=== PATIENT | male | born 1980 | race Caucasian/White ===

== ENCOUNTER 2022-06-22 10:03 | Outpatient (REF) | payer OTHER, SELFPAY ==
--- NOTE | ~2022-06-22 | XR_ITS ---
EXAMINATION: XR CHEST CLINICAL INFORMATION: Acute bronchitis COMPARISON: None TECHNIQUE: 2 views of the chest were obtained. FINDINGS: No significant abnormality is noted involving the heart, lungs, mediastinum, bony thorax or soft tissues. XR/XR chest 2V IMPRESSION: Unremarkable examination.
== END 2022-06-22 10:04 | disposition home or self-care (01) ==
LOC: HO.HMGCX 10:03
PROVIDERS: Visit Provider Internal Medicine
DX: J02.9 Acute pharyngitis, unspecified (principal); U09.9 Post COVID-19 condition, unspecified
CPT/HCPCS: 71046

== ENCOUNTER 2025-05-26 13:08 | Outpatient (AMB) | payer OTHER, SELFPAY ==
--- NOTE | 2025-05-26 13:24 | MHC.OFFVIS ---
Intake Visit Reasons: 1 yr fu Allergies No Known Allergies Allergy (Verified 06/22/22 09:47) HPI Comments Details: 44 years old man with restless legs syndrome. As far as restless legs syndrome was concerned, he was doing okay. He said that he was diagnosed with a obstructive sleep apnea and [place] and was prescribed CPAP machine, which she was struggling with. He was not sure if it was helping. Also he had seen an ENT doctor and had allergy shots for stuffiness of nose. [facility] Medical History (Updated 05/26/25 @ 13:26 by Zhang Preciado MD) RLS (restless legs syndrome) Review of Systems Narrative - Respiratory: Reports sleep apnea. - Allergic/Immunologic: Reports allergies to tree pollens. Physical Exam Neuro Other: Mental Status: Alert and oriented to person, place, and time. Normal attention. Normal spontaneous speech, fluency, and comprehension. No obvious issues with mood and memory. Affect is appropriate. Cranial Nerves: CN II: Visual [place] full to confrontation, visual acuity intact. CN III, IV, : Pupils equal, round, reactive to light and accommodation. Extraocular movements are normal. CN V: Facial sensation is normal. CN VII: Facial movements symmetrical. CN VIII: Hearing intact to bedside conversation is normal. CN IX, X: Palate elevates symmetrically. CN XI: Shoulder shrug and head turn symmetrical. CN XII: Tongue midline without atrophy or fasciculations. Motor: Bulk and tone normal in all extremities. No significant muscle weakness in arms and legs. No drift. Reflexes: Deep tendon reflexes 2+ and symmetric. Plantar response down-going bilaterally. Coordination: Gxceyt-ft-gwha and toak-xz-zldd testing normal. No dysmetria. Gait and Station: No obvious gait abnormality. No ataxia or instability. Extrapyramidal: Full facial expressions and blinking. No rigidity. Movements are appropriate with no tremor or abnormality. Speech: Normal; no dysarthria or tremor. Assessment & Plan Assessment & Plan (1) Familial restless legs syndrome: Comment: NCV/EMG LTUE This is a normal study. 03/29/22. Code(s): G25.81 - Restless legs syndrome Category: Medical Plan Impression: Familial RLS. He was anxious about this condition getting worse. He was reassured and educated and was advised to take medicine at bedtime. Rec: Pramipaxole 0.5mg 1-2 at bedtime Medications: Changed From pramipexole 0.5 mg PO BEDTIME 90 tabs 1RF To pramipexole 0.5 mg orally 1-2 at bedtime; 180 tabs 1RF Coding Level of Care Code Est Pt Level 4 (35058) Diagnoses Familial restless legs syndrome G25.81
--- OUTSIDE RECORDS SUMMARY | 2025-05-26 15:55 | XMS_ITS | Clinical Summary ---
Author Organization [address] Address [address] [place] [id number] Phone Care Team Providers Care Flat Grinder Operator Name Role Phone Bryant Pyle MD Primary Care Provider [phone] Allergies No known active allergies Medications cyanocobalamin (VIT B-12) 1,000 mcg tablet extended release ER tablet Take by mouth. Active multivitamin (MULTIPLE VITAMINS ORAL) Take by mouth. Active pramipexole (MIRAPEX) 0.5 mg tablet Take 1 tablet (0.5 mg total) by mouth at bedtime. 09/06/2022 Active tadalafiL (CIALIS) 20 mg tablet Take by mouth 1 (one) time each day if needed. Take half a pill 1 hour (range: 30 minutes to 4 hours) before sexual activity as needed; 10/15/2019 Active omeprazole (PriLOSEC) [address] capsule TAKE 1 CAPSULE BY MOUTH 1 TIME EACH DAY. 90 capsule 1 03/11/2025 Active Active Problems Problem Noted Date Diagnosed Date Deviated nasal septum 10/19/2023 Gastroesophageal reflux dise ase with esophagitis without hemorrhage 09/19/2023 Abnormal LFTs 08/29/2018 Thalassemia carrier 08/29/2018 Erectile dysfunction 08/22/2017 Microcytic anemia 08/22/2017 Overview (04/21/2024): Thalassemia Minor Assessment & Plan (07/31/2024 4:22 PM EST): Orders: Iron and TIBC; Future Ferritin; Future Restless leg syndrome 08/22/2017 Immunizations Immunization Administration Dates Next Due Td Tetanus diptheria (Tdvax) 7yo and older 08/24 Tdap Tetanus diptheria acell ular pertussis (Boostrix; Adacel) 7yo and older 01/06/2021 Surgical History Surgery Date Site/Laterality Comments VASECTOMY 2017 PROCEDURE: HISTORICAL VASECTOMY Medical History Medical History Date Comments Thalassemia minor 08/22/2017 DX:Thalassemia minor Restless leg syndrome 08/22/2017 DX:Restles s leg syndrome Erectile dysfunction 08/22/2017 DX:Erectile dysfunction Family History Relation Name Status Comments Brother 1 Alive Brother 2 Alive Father Alive Mother Alive Son 1 Alive Son 2 Alive Social History Tobacco Use Types Packs/Day Years Used Date Smoking Tobacco: Never Smokeless Tobacco: Never Tobacco Cessation:Counseling Given: Not Answered Alcohol Use Standard Drinks/Week Comments Yes 0 (1 standard drink = 0.6 oz pur e alcohol) Housing Instability Answer Date Recorde d Are you worried that in the next 2 months you may not have stable housing? No 07/25/2024 Food Access & Nutrition Answer Date Rec orded Do you have access to a vari ety of food including fruits and vegetables? Yes 07/25/2024 Access to Healthcare Answer Date Record ed Within the last 3 months, ho w many times did you visit the emergency department for your medical care? 0 07/25/2024 Health Literacy Answer Date Recorded How often do you need to hav e someone help you when you read instructions, pamphlets, or other written material from your doctor or pharmacy? Never 07/25/2024 Caregiver: How often do you need to have someone help you when you read instructions, pamphlets, or other written material from your doctor or pharmacy? Not on file 07/25/2024 Financial Risk Answer Date Recorded How hard is it for you to pa y for the very basics like food, housing, medical care, and air conditioning / heating? Not very hard 07/25/2024 Transportation Answer Date Recorded Has the lack of transportati on kept you from meetings, work, or from getting things needed for daily living? No Has the lack of transportati on kept you from medical appointments or from getting medications? No 07/25/2024 Social Isolation Answer Date Recorded How often do you feel lonely or isolated from th ose around you? Never 07/25/2024 Food Risk Answer Date Recorded Within the past 12 months we worried whether our food would run out before we got money to buy more. Never true 07/25/2024 Within the past 12 months th e food we bought just didn't last and we didn't have money to get more. Never true 07/25/2024 Dependent Care Answer Date Recorded Do you need help finding or paying for care for your loved ones. For example, child abuse worker or elderly care for an older adult? No 07/25/2024 Education Answer Date Recorded Do you think completing more education or training, like finishing a GED, going to college, or learning a trade, would be helpful for you? No 07/25/2024 Employment and Income Answer Date Recor ded During the last four weeks, have you been actively looking for work? No 07/25/2024 Living Situation Answer Date Recorded What is your living situation? Unrecognized valu e 07/25/2024 Sex and Gender Information Value Date Recorded Sex Assigned at Not on file Legal Sex Male 10:48 AM EST Gender Identity Not on file Sexual Orientation Not on file Obstetrics History Last Filed Vital Signs Vital Sign Reading Time Taken Comments Blood Pressure 110/64 07/31/2024 2:21 PM EST Pulse 78 07/31/2024 2:21 PM EST Temperature 36.4 C (97.6 F) 07/31/2024 2:21 PM EST Respiratory Rate 14 07/31/2024 2:21 PM EST Oxygen Saturation 98% 07/31/2024 2:21 PM EST Inhaled Oxygen Concentration - - Weight 89.8 kg (198 lb) 07/31/2024 2:21 PM EST Height 182.9 cm (6') 07/31/2024 2:21 PM EST Body Mass Index 26.85 07/31/2024 2:21 PM EST Plan of Treatment Upcoming Encounters Date Type Department Care Team (Late st Contact Info) Description 06/09/2025 3:00 PM EST Office Visit Adult Medicine [facility] [address], [place] [phone] Miller Doty NP [address], [place] Health Maintenance Due Date Last Done Comments Hepatitis B Vaccines (1 of 3 - 19+ 3-dose series) 2001 Pneumococcal Vaccine: Pediatrics (0 to 5 Years) and At-Risk Patients (6 to 49 Years) (1 of 2 - PCV) 2001 HPV Vaccines (1 - 3-dose SCD M series) 2009 HIV Screening 07/01/2022 Hepatitis C Screening 07/01/2022 COVID-19 Vaccine (3 - 2024-2 6 season) 2025 10/28/2020, 10/07/2020 Influenza Vaccine (#1) 2025 Social Influencers of Health Screening 07/25/2025 07/25/2024 Cholesterol Screening (Lipid Panel) 07/31/2029 07/31/2024, 10/08/2023, 10/08/2023 DTaP,Tdap,and Td Vaccines (3 - Td or Tdap) 01/06/2031 01/06/2021, 08/24/2017 RSV Immunization Adult Patients (1 - 1-dose 75+ series) 2057 Depression Screening Completed 07/25/2024 HIB Vaccines Aged Out No longer eligi ble based on patient's age to complete this topic Hepatitis A Vaccines Aged Out No long er eligible based on patient's age to complete this topic IPV Vaccines Aged Out No longer eligi ble based on patient's age to complete this topic MMR Vaccines Aged Out No longer eligi ble based on patient's age to complete this topic Meningococcal ACWY Vaccine Aged Out N o longer eligible based on patient's age to complete this topic Meningococcal B Vaccine Aged Out No l onger eligible based on patient's age to complete this topic RSV Immunization Patients Under 20 months Aged Out No longer eligible b ased on patient's age to complete this topic Varicella Vaccines Aged Out No longer eligible based on patient's age to complete this topic Procedures Procedure Name Priority Date/Time Associated Diagnosis Comments HOME SLEEP TEST Routine 03/18/2025 4:06 PM EDT LIPID PANEL WITH REFLEX TO DIRECT LDL Routine 07/31/2024 2:55 PM EST Routine general medical examination at a health care facility from Last 3 Months or Most Recently Relevant to Health Maintenance Results * Home sleep test (03/18/2025 4:06 PM EDT) Historical Provider [facility] ORDERABLES F inal Result * (ABNORMAL) Lipid panel with reflex to direct LDL (07/31/2024 2:55 PM EST) Cholesterol 195 0 - 200 mg/dL LAB CHEMISTRY METHOD 07/31/2024 6:46 PM EST [facility] Triglycerides 99 0 - 150 mg/dL LAB CHEMISTRY METHOD 07/31/2024 6:46 PM EST [facility] HDL 46 >=40 mg/dL LAB CHEMISTRY METHOD 07/31/2024 6:46 PM EST [facility] LDL Calculated 129(H) 0 - 100 mg/dL LAB CHEMISTRY METHOD 07/31/2024 6:46 PM [facility] VLDL Cholesterol Amol 19.8 mg/dL LAB CHEMISTRY METHOD 07/31/2024 6:46 PM EST [facility] Non HDL Chol. (LDL+VLDL) 149(H) <145 mg/dL LAB CHEMISTRY METHOD 07/31/2024 6:46 PM EST [facility] Chol/HDL Ratio 4.2 0.0 - 4.4 LAB CHEMISTRY METHOD 07/31/2024 6:46 PM EST [facility] Blood Venous blood specimen / Unknown Venipuncture / Unknown 07/31/2024 2:55 PM EST 07/31/2024 2:55 PM EST Jameel CARRANZA LAB BLOOD ORDERABLES Fin al Result [facility] [address] [place] [address], from Last 3 Months or Most Recently Relevant to Health Maintenance Insurance [facility] Care Teams Flat Grinder Operator Relationship Specialty Start Date End Date Bryant Pyle MD [address] [place] [id number] PCP - General Internal Medicine 08/16/17
--- OUTSIDE RECORDS SUMMARY | 2025-05-26 15:56 | XMS_ITS | Data Portability ---
Author Organization [place] [facility], Allergy Address [address] [address] Care Team Providers Care Recruiter Specialist Name Role Phone ONUR MENDOZA Primary Care Provider Assessment Encounter Date Assessment Date Assessment LastModified by Organization Details LastModified Time 04/21/2025 04/21/2025 Visit With: Camila Myers Use of Antihistamine s: No If yes: Vial Test Yes Change in medications: No If yes Increase in asthma symptoms If yes, inhaler use: Reaction to last injections: If yes: Allergy Symptoms: Other: Missed: Dose Aware of Vial Test Aware: Notes:pt forgot to bring epi pen for his initial shot yesterday i went over everything yesterday today his getting his injections Not available 04/21/2025 16:18:10 04/28/2025 04/28/2025 Visit With: Camila Myers Use of Antihistamine s: No If yes: Vial Test Change in medications: No If yes Increase in asthma symptoms If yes, inhaler use: Reaction to last injections: No If yes: Allergy Symptoms: Other: Missed: Dose Aware of Vial Test Aware: Notes: [email or web address] Not available 04/28/2025 15:52:21 05/05/2025 05/05/2025 Visit With: RAMON Morocho Use of Antihistamine s: No If yes: Vial Test Change in medications: No If yes Increase in asthma symptoms If yes, inhaler use: Reaction to last injections: No If yes: Allergy Symptoms: Other: Missed: Dose Aware of Vial Test Aware: Notes: [email or web address] Not available 05/05/2025 15:29:21 05/12/2025 05/12/2025 Visit With: Camila Myers Use of Antihistamine s: No If yes: Vial Test Change in medications: No If yes Increase in asthma symptoms If yes, inhaler use: Reaction to last injections: No If yes: Allergy Symptoms: Other: Missed: Dose Aware of Vial Test Aware: Notes: [email or web address] Not available 05/12/2025 16:29:19 05/19/2025 05/19/2025 Visit With: Camila Myers Use of Antihistamine s: No If yes: Vial Test Change in medications: No If yes Increase in asthma symptoms If yes, inhaler use: Reaction to last injections: No If yes: Allergy Symptoms: Other: Missed: Dose Aware of Vial Test Aware: Notes: [email or web address] Not available 05/19/2025 15:59:57 Plan of Treatment Reminders Order Date Submit Date Provider Last Modified By Organization Details Last Modified Time Details Appointments [facility]- Allergy f-up 6mon 2025 01:00P M DILLAN TURCIOS MD Not available Not available Not available Lab None recorded . Referral None recorded . Procedures None recorded . Surgeries None recorded . Imaging None recorded . Medication Orders None recorded . Patient TargetsNo targets recorded. Patient InstructionsNo instructions recorded. Reason for Referral None Reported. Results Created Date Observation Date Name Description Value Unit Range Abnormal Flag Note LastModifiedBy Organization Detail LastModifiedTime 04/08/20 home sleep study No observ ation record ed. [email or web address] Not Available 09:34:50 Result Notes None recorded. Problems Name Problem SNOMED Code Status Onset Date Resolution Date Notes Provider Name and Address Organization Details Recorded Time Nasal congestion 64509445 Active 2024 DILLAN TURCIOS MD 100 [facility], [place], [address], [facility] - [facility] 09:15:48 Deviated nasal septum 706868639 Active 2024 DILLAN TURCIOS MD 100 [facility],[address], [place], [address], [facility] - [facility] 09:15:49 Non-allergi c rhinitis 921756199412 Active 2024 DILLAN TURCIOS MD 100 [facility], [address] [facility], [place], [address], [facility] 09:16:20 Seasonal allergic rhinitis 126882429 Active 2024 DILLAN TURCIOS MD 100 [facility], [address] [facility], [place], [address], [facility] - [facility] 09:16:20 Perennial allergic rhinitis 100261346 Active 2024 ISIDORO LEON, [facility] 100 [facility], [address] [facility], [place], [address], [facility] - [facility] 15:28:35 Allergic rhinitis 05287512 Active 2024 RAMON RG 100 [facility],[place] [address], [place], [address], [facility] - [facility] 15:28:31 Problem Notes None recorded. Procedures Surgical History Date Name Laterality Status Provider Name and Address Organization Details Recorded Time 05/19/20 25 Allergy Immunotherapy Injections completed RAMON RG 100 [facility],[address], [address], [facility] - [facility] 05/19/2025 15:59:41 05/12/20 25 Allergy Immunotherapy Injections completed RAMON RG [facility],[address], [address], [facility] - [facility] 05/12/2025 16:29:10 05/05/20 25 Allergy Immunotherapy Injections completed ISIDORO LEON [facility] 100 [facility],[address], [address], [facility] - [facility] 05/05/2025 15:29:05 04/28/20 25 Allergy Immunotherapy Injections completed RAMON RG 100 [facility],[address], [address], [facility] - [facility] 04/28/2025 15:52:12 04/21/20 25 Allergy Immunotherapy Injections completed CAMILA MIGUEL A [address], [place], [address], [facility] - [facility] 04/21/2025 16:14:12 04/20/20 25 Allergy Immunotherapy Injections completed CAMILABrea MYERS [facility] [address], [place], [address], [facility] - [facility] 04/20/2025 15:56:19 01/07/20 25 Allergy Testing-Full completed CAMILABrea MYERS A [address], [place], [address], [facility] - [facility] 01/06/2025 14:47:32 12/27/19 25 Allergy Testing Modified- Quantitative Testing (MQT) Only completed ISIDORO LEON [facility] [address], [place], [address], [facility] - [facility] 12/26/2024 11:16:03 11/20/19 25 JMSNasal/Sinus Endoscopy completed DILLAN MOHAN MD [address] [facility], [place], [address], [facility] - [facility] 11/19/2024 09:15:34 Imaging Results None recorded. Procedure Notes None recorded. Medical Equipment None Reported. Allergies No known drug allergies Medications Name Sig Start Date Stop Date Status Note LastModified by Organization Details LastModified Time amoxicillin 500 mg capsule TAKE 1 CAPSULE BY MOUTH 3 TIMES A DAY 11/19 completed Not Available Not Available Not Available azithromyci n 250 mg tablet TAKE (ORAL) PER PACKAGE DIRECTION S FOR 5 DAYS 11/19 completed Not Available Not Available Not Available pramipexole 0.5 mg tablet TAKE 1 TABLET (0.5 MG) ORALLY BEDTIME active Not Available Not Available No t Available oxycodone-a cetaminophe n 5 mg-325 mg tablet TAKE 1 TABLET BY MOUTH EVERY 4 TO 6 HOURS NEEDED 11/19 completed Not Available Not Available Not Available omeprazole 20 mg capsule,del ayed release TAKE 1 CAPSULE BY MOUTH EVERY DAY active Not Available Not Available No t Available azelastine 137 mcg (0.1 %) nasal spray SPRAY 2 SPRAYS BY INTRANASA L ROUTE TWICE A DAY active Not Available Not Available No t Available epinephrine 0.3 mg/0.3 mL injection, auto-inject or TAKE 1 AUTO NEEDED BY INJECTION ROUTE NEEDED. active Not Available Not Available No t Available methylpredn isolone 4 mg tablets in a dose pack TAKE 6 TABLETS ON DAY 1 DIRECTED ON PACKAGE AND DECREASE BY 1 TAB EACH DAY FOR A TOTAL OF 6 DAYS 11/19 completed Not Available Not Available Not Available ondansetron 4 mg disintegrat ing tablet PLACE 1 TAB UNDER TONGUE TO DISSOLVE TO HELP NAUSEA EVERY 4 TO 6 HOURS NEEDED FOR NAUSEA 11/19 completed Not Available Not Available Not Available fluticasone propionate 50 mcg/actuati on nasal spray,suspe nsion SPRAY 1 SPRAY BY INTRANASA L ROUTE EVERY DAY active Not Available Not Available No t Available tadalafil 20 mg tablet TAKE ONE-HALF TO ONE TABLET BY MOUTH 1 HOUR BEFORE INTERCOUR SE active Not Available Not Available No t Available chlorhexidi ne gluconate 0.12 % mouthwash SWISH AND SPIT 15 ML IN THE MORNING AND IN THE EVENING FOR 2 WEEKS 11/19 completed Not Available Not Available Not Available Vitals None Recorded Social History Question Answer Notes LastModified by Organizat ion Details LastModified Time Tobacco Smoking Status Current Some Day Smoker CAMILA MYERS Brea [address] [place] [address], [address], [facility] - [facility] 12/26/2024 10:39:33 How Much Tobacco Do You Smoke? No Smokes A Few Times A Month [email or web address] Information not available 12/26/2024 How Many Years Have You Smoked Tobacco? 20 [email or web address] Information not available 12/26/2024 Sex: Unknown Functional Status None recorded. Mental Status None recorded. Family History Nothing Reported. Medical History Condition Response Sleep Disorder Y GERD/Reflux Y Past Encounters Encounter ID Performer Location Encounter Start Date Encounter Closed Date Diagnosis/Indication Diagnosis SNOMED-CT Code Diagnosis ICD10 Code Diagnosis IMO Codes Diagnosis Note [id number] DILLAN BAGLEY MD [facility] [address] [address] 11/19/2024 08:48:41 11/19/2024 09:20:07 Nasal congestion 10451901 R09.81 68269 Deviated nasal septum 12 7493349 J34.2 99023 Non-allergic rhinitis 31 08837742 01 J31.0 [id number] DILLAN BAGLEY MD [facility] [address] [place] [address] 12/04/2024 08:27:46 12/22/2024 10:32:07 Nasal congestion 11042985 R09.81 64211 Deviated nasal septum 12 9720861 J34.2 79568 [id number] ISIDORO LEON, [facility] All[facility] [address] [place] [address], [place] [address] 12/26/2024 10:22:44 12/26/2024 11:17:21 Nasal congestion 64222312 R09.81 00671 Perennial allergic rhinitis 499422940 J30.89 [id number] CAMILA MYERS, [facility] [address] [place] [address], [place] [address] 01/06/2025 13:25:39 01/06/2025 14:49:41 Perennial allergic rhinitis 191980930 J30.89 [id number] DILLAN BAGLEY MD [facility] [address] [place] [address] 01/12/2025 08:17:46 01/12/2025 08:47:38 Deviated nasal septum 582974806 J34.2 39366 Perennial allergic rhinitis 736342456 J30.89 [id number] We also discussed the role of immunother apy. I explained that this is instituted for the most significan t of allergies and involves the introducti on of increasing ly graduated dosages of the appropriat e allergens by subcutaneo us injection to facilitate tolerance. I explained about the likelihood of some improvemen t usually within a three to six month time period provided that the patient is compliant with therapy. It may take substantia lly longer for patients with severe allergy. We spoke about the duration of therapy, which typically lasts from three to five years though at times can be indefinite . We also discussed the risk of anaphylaxi s with therapy. Use of an Epipen discussed. [id number] CAMILA MYERS [facility] [address] [place] [address] 04/20/2025 15:10:42 04/20/2025 15:59:25 Perennial allergic rhinitis 856644283 J30.89 [id number] CAMILA MYERS [facility] [address] [place] [address] 04/21/2025 15:42:10 04/21/2025 16:19:01 Perennial allergic rhinitis 689149054 J30.89 [id number] CAMILA MYERS [facility] [address] [facility] [facility] [address] [place] [address] 04/28/2025 15:42:27 04/28/2025 15:52:38 Perennial allergic rhinitis 362327553 J30.89 [id number] ISIDORO LEON [facility] [address] [facility] [place] [address] 05/05/2025 15:05:53 05/05/2025 15:29:45 Perennial allergic rhinitis 953437806 J30.89 [id number] CAMILA MYERS A [facility] [address] [facility] [facility] [place] [address] 05/12/2025 15:42:09 05/12/2025 16:29:33 Perennial allergic rhinitis 559716559 J30.89 [id number] CAMILA MYERS [facility] 100 [facility],[address] [place] [address] 05/19/2025 15:57:00 05/19/2025 16:00:17 Perennial allergic rhinitis 490151122 J30.89 Health Concerns Section Related Observation LastModified by Organization Detai ls LastModified Time None Recorded Concern Status LastModified by Organization Details LastModified Time None Recorded Advance Directives Directive None Recorded Payers Insurance Date Sequence Insurance Name Policy Number Policy Ulloa Covered Member ID Ulloa Member ID Guarantor Name 05/19/2025 1 [facility] Sung Saba [id number] Sung Saba
== END 2025-05-26 13:32 | disposition home or self-care (01) ==
LOC: HO.HSM 13:08
PROVIDERS: PCP Internal Medicine; Referring Provider Internal Medicine; Visit Provider Psychiatry & Neurology Neurology
DX: G25.81 Restless legs syndrome (principal)
CPT/HCPCS: 99214